=== PATIENT | female | born 2000 | race Two or more races ===

== ENCOUNTER 2020-05-16 09:33 | Inpatient (IN) | payer OTHER ==
[2020-05-16] VITALS (20 sets, daily range): BP systolic 86–157; BP diastolic 50–88
[~2020-05-16] VITALS: Ht 149.9 cm; Wt 79.5 kg
[2020-05-16] MEDS ORDERED: PRENTAB9 PO (10:58)
--- NOTE | 2020-05-16 11:04 | HPEPDOC ---
Obstetrical History & Physical General Date of Admission May 16, 2020 at 09:33 History of Present Illness 19yo at 37+2 by LMP c/w 11wk US presents for IOL for IUGR with CAT II tracing at T in clinic. She had a BPP Wednesday that was 10/10 with dopplers that were <95%ile (previously <5%ile) and it took extended monitoring to get a CAT II tracing / 01/19 BPP so decision was made to proceed with IOL at 37wk. Her last GS was on with EFW 9%, AC 6%, HC <2%. Today she denied n/v/d, cp, sob, ernst, visual changes, abd pain, f/c, vb, lof, decreased fm, contractions, urinary sx. APC 1. IUGR 2. GBS positive 3. Excessive weight gain 45# Rh pos, GBS POS, ceph by US, extrapolated EFW 2574g Antepartum Course Pre- weight (lbs.): 131 Admission Weight (lbs.): 176 Change in Weight (lbs.): 45 Past Medical History Past Obstetrical History : Past Obstetrical History: [employer] History: No pertinent history Past Medical History Medical History Denied Surgical History: Denies/None Family History Significant Family History: No pertinent family hx Social History Psychosocial History: No pertinent psych hx * Smoker: non-smoker Alcohol: Denies Drugs: denies Allergies Coded Allergies: Penicillins (Verified Allergy, Unknown, 05/16/20) lidocaine (Verified Allergy, Unknown, 05/16/20) Medications Scheduled No.137/Iron/Folic Acd ( Vitamin Tablet) 1 Each Tablet, 1 TAB PO DAILY Physical Examination Physical Examination GENERAL: Alert and oriented times three. BREAST: . ABDOMEN: Gravid and non-tender to touch. FETUS: Is vertex (VTX) by US HEART RATE: Regular rate and rhythm. LUNGS: Clear to auscultation (CTA). EXTREMITIES: No edema. No clonus. Vital Signs/I&O Vital Signs Date Time Temp Pulse Resp B/P (MAP) Pulse Ox O2 Delivery O2 Flow Rate FiO2 05/16/20 10:11 98.7 100 109/69 (82) Room Air Laboratory Data 24H LABS Laboratory Tests 2 05/16/20 10:01: Serology Scanned Report Hepatitis B Testing Urine Culture: No Growth Pertinent Laboratoy Data Blood Type: A+ RBC Antibody Screen: Negative HIV: Negative Hepatitis B: Negative Rapid Plasma Reagin: Nonreactive Rubella: Immune Varicella: Immune Chlamydia/Gonorrhea: Negative Group B Streptococcus: Positive Quad Screen Test: Declined Cystic Fibrosis: Negative Glucose Tolerance Test: 103 Anatomy Ultrasound Placenta Location: Anterior Normal Anatomy: Yes Estimated Weight (grams): 2500 Steroid Therapy Steroid Therapy: No Vaginal Examination Dilation: 3 cm Effacement: 50% Station: -3 Cervical Consistency: Soft Cervical Position: Posterior Presentation: Cephalic presentation (by US) Assessment Heart Rate (FHR): 140 Variability: Moderate Accelerations: Positive Decelerations: None Tocometer Contractions: No Multi-drug resistant Organism: No history of MDRO Assessment/Plan Assessment 19yo at 37+2 by LMP c/w 11wk US presents for IOL for IUGR with CAT II tracing at N[facility] in clinic. She had a BPP Wednesday that was 10/10 with dopplers that were <95%ile (previously <5%ile) and it took extended monitoring to get a CAT II tracing / 10/10 BPP so decision was made to proceed with IOL at 37wk. CAT I tracing, reactive. VS normal. SVE 3/50/-3 on admit will start pitocin and vanc for GBS ppx. APC 1. IUGR 2. GBS positive 3. Excessive weight gain 45# Rh pos, GBS POS, ceph by US, extrapolated EFW 2574g Plan Admit and orient. [employer] Operator and consent. Diet:clears Group B Streptococcus (GBS) with vanc given allergy to PCN and no sensitivities Labs and intravenous (IV) per unit protocol. Counseled on Pitocin and induction of labor (IOL). Anticipate [normal spontaneous delivery ()]. C-S as appropriate. CRISSY PALACIOS DO May 16, 2020 11:04
[2020-05-16] MEDS ORDERED: VANCOMYCIN HCL 1,000 MG, VIAL MATE ADAPTER 1 EACH in D5W 250 ML IV SCH (11:15)
[2020-05-16 12:26] LABS: HEMATOCRIT 33.2 % (36.0-47.0); HEMOGLOBIN 11.1 g/dl (12.0-15.5); MEAN CORPUSCULAR HEMOGLOBIN 28.9 pg (27.0-33.0); MEAN CORPUSCULAR HGB CONC 33.4 g/dl (32.0-36.5); MEAN CORPUSCULAR VOLUME 86.5 fl (80.0-96.0); PLATELET COUNT, AUTOMATED 251 10^3/uL (150-450); RED BLOOD COUNT 3.84 10^6/uL (4.00-5.40); WHITE BLOOD COUNT 8.1 10^3/uL (4.0-10.0)
[2020-05-16] MEDS ORDERED: OXYTOCIN DRIP 30 UNITS in IV 1 EA IV SCH (12:30)
[2020-05-16] MEDS ORDERED: ceFAZolin SOD 2 GM in IV 1 EA IV STA (17:26)
--- NOTE | 2020-05-16 20:42 | IPNPDOC ---
Obstetrical Progress Note Date of Service May 16, 2020 Subjective To room for routine assessment. Patient reports painful contractions but no increased pressure. Objective Vital Signs Date Time Temp Pulse Resp B/P (MAP) Pulse Ox O2 Delivery O2 Flow Rate FiO2 05/16/20 19:15 98.4 68 18 Room Air 05/16/20 18:40 119/60 (79) Assessment Heart Rate (FHR): 135 Variability: Moderate Accelerations: Positive Decelerations: None Heart Rate Tracing: Category I Tocometer Contractions: Yes Frequency: regular Sterile Vaginal Examination Dilation: 3 cm Effacement (%): 50% Station: -3 Cervical Consistency: Soft Cervical Position: Middle Postion/Presentation: Cephalic presentation (by exam) Assessment and Plan Status: Reassuring Anticipate: Vaginal Delivery Additional Comments SVE is still 3cm but her cervix is more anterior than my prior exam. Will continue to increase pitocin and try some positioning and swaying techniques. CAT I tracing. Will reassess in 4-6h or sooner if clinically indicated. CRISSY PALACIOS DO May 16, 2020 20:42
[2020-05-17] VITALS (26 sets, daily range): BP systolic 94–154; BP diastolic 52–92
--- NOTE | 2020-05-17 01:32 | IPNPDOC ---
Obstetrical Progress Note Date of Service May 17, 2020 Subjective strip note, per RN patient with some increased pain with contractions but currently sleeping Objective Vital Signs Date Time Temp Pulse Resp B/P (MAP) Pulse Ox O2 Delivery O2 Flow Rate FiO2 05/16/20 22:21 68 16 101/52 (68) 05/16/20 19:15 98.4 Room Air Assessment Heart Rate (FHR): 120 Variability: Moderate Accelerations: Positive Decelerations: None Heart Rate Tracing: Category I Tocometer Contractions: Yes Frequency: irregular Assessment and Plan Additional Comments CAT I tracing, reactive at this time. Earlier there were 2 late decels and pit was decreased and this resolved. Patient sleeping. Continue IOL with pit, will reassess in 4-6h or sooner if clinically indicated. CRISSY PALACIOS DO May 17, 2020 01:32
[2020-05-17] MEDS: ceFAZolin SOD 1 GM in D5W MINI-BAG PLUS 50 ML IV SCH ×2 (02:04→10:00)
[2020-05-17] MEDS: LR 1,000 ML IV SCH ×2 (04:26→06:53)
--- NOTE | 2020-05-17 06:25 | IPNPDOC ---
Text Note Date of Service The patient was seen on 05/17/20. NOTE strip note, 130bpm, +accels, -decels, mod doinne, cont 06/19. CAT I (was CAT II a few hours ago for some variables that have since resolved). She SROMed at 0449 clear. She desires an epidural. Plan for SVE after epidural. VS,Fishbone, I+O VS, Fishbone, I+O Laboratory Tests 05/16/20 11:04 Vital Signs Date Time Temp Pulse Resp B/P (MAP) Pulse Ox O2 Delivery O2 Flow Rate FiO2 05/17/20 05:51 78 20 117/75 (89) 05/17/20 04:51 98.0 05/16/20 19:15 Room Air I&O- Last 24 Hours up to 6 AM 05/17/20 06:00 Intake Total 2470 ml Output Total 2650 ml Balance -180 ml CRISSY PALACIOS DO May 17, 2020 06:25
[2020-05-17] MEDS ORDERED: FENTANYL 2MCG/ML ROPIVACAINE 0.2% IN 0.9% NACL 100ML IVBAG As Ordered ONE (06:30)
[2020-05-17] MEDS ORDERED: ONDANSETRON 4MG/2ML VIAL IV PRN (06:30)
[2020-05-17] MEDS ORDERED: CHLOROPROCAINE PRES. FREE 3% 20ML VIAL SC STA (07:44)
[2020-05-17] MEDS ORDERED: BUTORPHANOL 2 MG/ML INJ (J0595) IV ONE (07:45)
[2020-05-17 08:23] LABS: CORD GAS ABE V -6.6; CORD GAS HCO3 V 17.2 MEQ/L; CORD GAS O2 SAT V 84.9 %; CORD GAS PCO2 V 30.5 mmHg; CORD GAS PH V 7.369 UNITS; CORD GAS PO2 V 39.8 mmHg; CORD GAS SBC V 18.9 MEQ/L; CORD GAS TCO2 V 18.1 MEQ/L
[2020-05-17] MEDS ORDERED: OXYTOCIN DRIP 30 UNITS in IV 1 EA IV SCH (08:28)
[2020-05-17] MEDS ORDERED: BENZOCAINE 20% HEMORRHOIDAL OINTMENT 28GM TUBE TOP PRN (08:30)
[2020-05-17] MEDS ORDERED: ACETAMINOPHEN TAB 650MG DOSE (2X325MG) PO PRN (08:30)
[2020-05-17] MEDS ORDERED: MEASLES,MUMPS,RUBELLA VACCINE INJ (MMR-II) (90707) SC SCH (08:30)
[2020-05-17] MEDS ORDERED: RHOGAM 300 MCG (1500 IU) INJ (J2790) IM SCH (08:30)
[2020-05-17] MEDS ORDERED: METHYLERGONOVINE MALEATE 0.2 MG TAB PO PRN (08:30)
--- NOTE | 2020-05-17 08:47 | DNPDOC ---
[facility] Delivery Note Delivery Note DATE OF DELIVERY: 05/17/20 PREDELIVERY DIAGNOSIS: 37+3/7 weeks' gestation and labor. POST DELIVERY DIAGNOSIS: Delivered. PROCEDURE: Spontaneous vaginal delivery POLYETHYLENE COMBINER: Dr. Miquel Palacios DO ANESTHESIA: none ESTIMATED BLOOD LOSS: 250 mL. FINDINGS: 5#7 infant, Score 9/9, nuchal cord times 0 DELIVERY SUMMARY: The patient progressed to C/C/+3 and with good maternal effort delivered the head followed by the corpus precipitously. A bandileer cord was noted. The baby had spontaneous movement and cry. The cord was clamped x2 and cut by the FOB and cord gasses were obtained. Cord blood was obtained. The placenta was delivered with ike downward traction. Bleeding following p lacenta delivery was scant. A second degree perineal laceration was noted. Chloroprocaine was used as local anesthetic and repair of the laceration was performed by Scott NUNEZ in the usual fashion with 2-0 vicryl. A defect was noted in the placenta and a sweep was performed where the piece was located and 100cc clot was expressed. Bleeding remained scant. MIQUEL PALACIOS DO May 17, 2020 08:47
[2020-05-17] MEDS: IBUPROFEN 800 MG TAB PO PRN ×2 (10:28→19:57)
[2020-05-17] MEDS: PRENATAL VITAMINS CHEWABLE TABLET PO SCH (10:28)
[2020-05-17] MEDS: DOCUSATE SODIUM 100MG CAPSULE PO PRN (19:56)
[2020-05-18 06:00] VITALS: BP 121/70
--- NOTE | 2020-05-18 09:38 | IPNPDOC ---
Progress Note Date of Service: May 18, 2020 Day#: 1 Progress Note SUBJECT: Cristine is a 19-year-old 1 now Para 1 status post uncomplicated spontaneous vaginal delivery at 37-1/7 weeks' on 17May2020 of a female with perineal laceration and repair, doing well day # 1. She has been ambulating, voiding spontaneously without issue and tolerating regular diet. Breast feeding without issue. Reports lochia is like a normal period. Patient is ambulating well. Reports some cramping with . Denies any pain. Voiding without difficulty. OBJECTIVE: VITAL SIGNS: Within normal limits, afebrile. Alert and oriented times three. Breath sounds clear to auscultation. Heart rate: Regular rate and rhythm, no murmurs, rubs or gallops. Abdomen: Fundus firm at U-2. Soft, NTTP. Minimal lochia. Breasts, soft, non tender, intact nipples ASSESSMENT: post uncomplicated spontaneous vaginal delivery after presenting for IOL, doing well on day 1. Vitals within normal limits, afebrile, hemodynamically stable with no evidence of infection. PLAN: 1. Discharge to home on day 2 PP. 2. Tylenol and Motrin for pain. 3. Encourage breast feeding and ambulation. 4. Assist with as needed VS, I&O, 24H, Fishbone Vital Signs/I&O Vital Signs Date Time Temp Pulse Resp B/P (MAP) Pulse Ox O2 Delivery O2 Flow Rate FiO2 05/18/20 06:00 97.4 83 16 121/70 (87) 05/17/20 18:00 100 Room Air I&O- Last 24 Hours up to 6 AM 05/18/20 06:00 Intake Total 4326 ml Output Total 850 ml Balance 3476 ml TESFAYE SMITH CNM May 18, 2020 09:38
[2020-05-18] MEDS: IBUPROFEN 800 MG TAB PO PRN (09:39)
[2020-05-18] MEDS: PRENATAL VITAMINS CHEWABLE TABLET PO SCH (09:39)
[2020-05-18 18:00] VITALS: BP 125/80
[2020-05-18] MEDS: DOCUSATE SODIUM 100MG CAPSULE PO PRN (18:09)
[2020-05-19 05:52] VITALS: BP 114/69
[2020-05-19] MEDS ORDERED: ACET1TAB55 PO (08:05)
[2020-05-19] MEDS ORDERED: IBUP80TA PO (08:06)
--- NOTE | 2020-05-19 08:10 | DS.PDOC ---
Discharge Summary General Date of Admission May 16, 2020 at 09:33 Date of Discharge May 19, 2020 Discharge Summary HOSPITAL COURSE: Ms. Hay is a 19 yo G1 now P1 who underwent an uncomplicated on 17May2020 after being admitted for an IOL for IUGR. Her course was unremarkable. On her day of discharge she met all appropriate discharge criteria. She was ambulating, voiding, tolerating a regular diet, and had minimal lochia. DISCHARGE MEDICATIONS: Please see below. ALLERGIES: Please see below. PHYSICAL EXAMINATION ON DISCHARGE: VITAL SIGNS: Please see below. GENERAL: AAOX3, NAD ABDOMINAL EXAMINATION: Fundus firm at U-2. No fundal tenderness EXTREMITIES: No edema PSYCHIATRIC EXAMINATION: Affect appropriate LABORATORY DATA: Please see below. ACTIVITY: Pelvic rest for 6 weeks DIET: Regular DISCHARGE PLAN: Discharge home DISPOSITION: Discharge home on 19May2020 . DISCHARGE INSTRUCTIONS: 1. Nothing in the vagina for 6 weeks ITEMS TO FOLLOWUP ON ON OUTPATIENT: 1. Call to schedule a visit for 6-8 weeks post delivery DISCHARGE CONDITION: Stable. TIME SPENT ON DISCHARGE: Greater than 20 minutes. Alycia Rios DO Vital Signs/I&Os Vital Signs Date Time Temp Pulse Resp B/P (MAP) Pulse Ox O2 Delivery O2 Flow Rate FiO2 05/19/20 05:52 97.9 100 18 114/69 (84) 05/18/20 18:00 100 Room Air I&O- Last 24 Hours up to 6 AM 05/19/20 06:00 Intake Total 500 ml Balance 500 ml Discharge Medications Scheduled No.137/Iron/Folic Acd ( Vitamin Tablet) 1 Each Tablet, 1 TAB PO DAILY, (Reported) Scheduled PRN Acetaminophen (Acetaminophen) 325 Mg Tablet, 650 MG PO Q4HP PRN for PAIN LEVEL 1-5 Ibuprofen (Ibuprofen) 800 Mg Tablet, 800 MG PO Q8HP PRN for PAIN LEVEL 6-10 Allergies Coded Allergies: vancomycin (Verified Allergy, Mild, itcHing, 05/16/20) Penicillins (Verified Allergy, Unknown, 05/16/20) lidocaine (Verified Allergy, Unknown, 05/16/20) ALYCIA RIOS DO May 19, 2020 08:10
[2020-05-19] MEDS: PRENATAL VITAMINS CHEWABLE TABLET PO SCH (09:56)
[2020-05-19] MEDS: IBUPROFEN 800 MG TAB PO PRN (09:56)
== END 2020-05-19 14:00 | disposition home or self-care (01) | DRG 807 ==
LOC: M LDI 09:33 → M OBS 05-17 10:50
PROVIDERS: ADMIT Obstetrics & Gynecology; ATTEND Obstetrics & Gynecology
PROC: 3E033VJ Introduction of Other Hormone into Peripheral Vein, Percutaneous Approach (ICD-10-PCS; 2020-05-16)
PROC: 10E0XZZ Delivery of Products of Conception, External Approach (ICD-10-PCS; principal; 2020-05-17)
PROC: 0KQM0ZZ Repair Perineum Muscle, Open Approach (ICD-10-PCS; 2020-05-17)
DX: O36.5930 Maternal care for other known or suspected poor fetal growth, third trimester, not applicable or unspecified (principal); Z37.0 Single live birth; Z3A.37 37 weeks gestation of pregnancy; O70.1 Second degree perineal laceration during delivery; O26.00 Excessive weight gain in pregnancy, unspecified trimester; O99.820 Streptococcus B carrier state complicating pregnancy; Z88.0 Allergy status to penicillin; Z88.8 Allergy status to other drugs, medicaments and biological substances; O69.89X0 Labor and delivery complicated by other cord complications, not applicable or unspecified

== ENCOUNTER 2022-03-20 15:33 | Emergency (ER) | payer OTHER ==
[~2022-03-20] VITALS: Ht 149.9 cm; Wt 60.0 kg
[~2022-03-20 15:33] MED LIST: ACET1TAB55 PO; IBUP80TA PO; PRENTAB9 PO
[2022-03-20] MEDS ORDERED: APRITAB PO (21:32)
[2022-03-20 22:57] VITALS: BP 124/76
== END 2022-03-20 22:58 | disposition home or self-care (01) ==
LOC: M ED 15:33
DX: G25.9 Extrapyramidal and movement disorder, unspecified (principal); R25.1 Tremor, unspecified; Z79.3 Long term (current) use of hormonal contraceptives; Z88.0 Allergy status to penicillin; Z88.1 Allergy status to other antibiotic agents; Z88.8 Allergy status to other drugs, medicaments and biological substances